=== PATIENT | male | born 1990 | race Caucasian/White ===

== ENCOUNTER 2021-06-02 11:45 | Emergency (ER) | payer MEDICAID ==
[~2021-06-02] VITALS: Ht 170.2 cm; Wt 83.9 kg
[2021-06-02 11:57] VITALS: BP_SYST 142
[2021-06-02] MEDS ORDERED: DEXAMETHASONE SOD PHOSPHATE 10 MG/ML VIAL PO ONE (12:30)
[2021-06-02 12:47] VITALS: BP_SYST 142
[2021-06-02] MEDS ORDERED: NALOXONE HCL 2 MG/2 ML SYR ONE (14:48)
== END 2021-06-02 12:47 | disposition home or self-care (01) ==
LOC: SED 11:45
DX: J02.9 Acute pharyngitis, unspecified (principal)
CPT/HCPCS: 86403; 87081; 99283; J1100; 36415; J2310